=== PATIENT | female | born 1995 | race Caucasian/White ===

== ENCOUNTER 2019-07-15 18:39 | Emergency (ER) | payer MEDICAID, SELFPAY ==
[2019-07-15 18:40] VITALS: BP 159/85; PULSE 100; RESP 17; TEMP 36.8; O2SAT 97; BMI 30.5
--- NOTE | 2019-07-15 18:51 | EKG12_ITS ---
Test Reason : CP Blood Pressure : / mmHG Vent. Rate : 076 BPM Atrial Rate : 076 BPM P-R Int : 124 ms QRS Dur : 080 ms QT Int : 380 ms P-R-T Axes : 055 058 051 degrees QTc Int : 427 ms Normal sinus rhythm Normal ECG Confirmed by BEBE KIM, CORIN ([id number]), business editor ALFREDO TOLBERT ([id number]) on 07/18/2019 8:49:07 AM Referred By: CARLOS Confirmed By:CORIN SPENCE MD
--- NOTE | 2019-07-15 18:52 | ED.DCSUM_ITS ---
History of Present Illness Chief Complaint: Shortness of Breath Informant: Patient, Family Onset: Month(s) Context: Gradual Onset Timing: Intermittent Current Severity: Mild Maximum Severity: Moderate Narrative: Patient presents with a several month history of shortness of breath, chest pain, abdominal pain. She states it will come on and last for several hours at a time and then spontaneously resolved. Last episode before today was a week ago. Patient has not taken anything for pain. She does feel nauseated but has no vomiting. She denies diarrhea or constipation. She denies cough or URI symptoms. - Past Medical History (1) History of Status: Chronic Past Medical History - Allergies and Home Meds Allergies/Adverse Reactions: Allergies No Known Allergies Allergy (Verified 07/15/19 18:39) Primary Care Physician: NOT,DEFINED [NON-STAFF] - Lives: With Family Review of Systems General: Denies: Chills, Fever Eyes: Denies: Visual changes - bilaterally ENT: Denies: Bilateral ear pain Cardiovascular: Reports: Chest pain. Denies: Palpitations, Heart racing Respiratory: Reports: Dyspnea. Denies: Cough, Sputum Gastrointestinal: Reports: Abdominal pain. Denies: Nausea, Vomiting, Diarrhea Genitourinary: Denies: Dysuria Musculoskeletal: Denies: Extremity Pain Skin: Denies: Rash Neurological: Denies: Headache Hematologic: Denies: Easy bruising Allergy: Denies: Uticaria Physical Exam Vital Signs/Narrative: Vital Signs Temp Pulse Resp BP Pulse Ox 07/15/19 18:40 98.2 F 100 17 159/85 H 97 Inital Vital Signs reviewed: Yes General: Well nourished, Well developed Head: Normocephalic ENT: Moist mucous membranes Neck: Supple Cardiovascular: Regular rate, Regular rhythm Respiratory: No distress, CTA bilaterally Abdomen: Soft, Nontender, Normal bowel sounds Back: Nontender Extremities: Nontender Skin: Normal color, No rash Neurological: Alert, Oriented x3, Normal Strength, Normal Sensation Psychological: Normal affect Diagnostic/Tx/Re-eval Impressions Acute Abdomen Series 07/15/19 19:15 IMPRESSION: Normal x-ray examination of the chest, abdomen, and pelvis. Electronically Signed: Ronald Gallegos MD at 19:55 EST , Service support , 07/15/19 19:15 Acute Abdomen Inc Chest [RAD] Stat Laboratory Results 07/15/19 07/15/19 07/15/19 19:05 19:05 19:05 WBC 11.5 H RBC 5.04 Hgb 14.6 Hct 43.4 MCV 86.1 MCH 29.0 MCHC 33.6 RDW Std Deviation 40.9 RDW Coeff of Nahed 13.2 Plt Count 275 MPV 9.4 Immature Gran % (Auto) 0.400 Neut % (Auto) 63.0 Lymph % (Auto) 29.8 [place] % (Auto) 5.5 Eos % (Auto) 1.0 Baso % (Auto) 0.3 Absolute Neuts (auto) 7.3 Absolute Lymphs (auto) 3.44 Nucleated RBC % 0 D-Dimer Quant (PE/DVT) 0.32 Sodium 138 Potassium 4.3 Chloride 109 H Carbon Dioxide 26.0 Anion Gap 3 L BUN 15 Creatinine 0.95 Estim Creat Clear Calc 66.72 Est GFR (MDRD) Af Amer 94 Est GFR (MDRD) Non-Af 78 BUN/Creatinine Ratio 15.8 Glucose 91 Calcium 9.3 Total Bilirubin 0.70 AST 16 ALT 42 Alkaline Phosphatase 60 Troponin I < 0.015 Total Protein 8.1 Albumin 3.9 Globulin 4.2 Albumin/Globulin Ratio 0.9 Serum , Qual 07/15/19 19:05 WBC RBC Hgb Hct MCV MCH MCHC RDW Std Deviation RDW Coeff of Nahed Plt Count MPV Immature Gran % (Auto) Neut % (Auto) Lymph % (Auto) [place] % (Auto) Eos % (Auto) Baso % (Auto) Absolute Neuts (auto) Absolute Lymphs (auto) Nucleated RBC % D-Dimer Quant (PE/DVT) Sodium Potassium Chloride Carbon Dioxide Anion Gap BUN Creatinine Estim Creat Clear Calc Est GFR (MDRD) Af Amer Est GFR (MDRD) Non-Af BUN/Creatinine Ratio Glucose Calcium Total Bilirubin AST ALT Alkaline Phosphatase Troponin I Total Protein Albumin Globulin Albumin/Globulin Ratio Serum , Qual NEGATIVE - EKG Initial EKG Interpretation: Sinus Rhythm - Sinus at 76 with no acute ischemia. - Medical Decision Making Patient was given Toradol, Zofran, and IV fluids. On repeat evaluation she does feel significantly improved. She will be started on Prilosec. Significant other also comments that she has been under increased stress and having a lot of anxiety recently. He is wondering if this may be contributing to her symptoms. She reportedly has been on medications and admitted to a psychiatric facility secondary to this. She is not currently on any medication. She will also be given a short course of Ativan to use as needed. She is referred to Dr. Young as well as counseling center. ED Disposition - Plan for ED Patient: Disposition: Home or Assisted Living Diagnosis: Atypical chest pain, Anxiety Instructions: CHEST PAIN, NonCardiac, Anxiety Reaction Prescriptions: Lorazepam [Ativan] 0.5 mg PO BID PRN PRN #10 tablet PRN Reason: Anxiety Transmission Status: Received by [id number] Omeprazole [Prilosec] 20 mg PO DAILY #30 cap Transmission Status: Pending to [facility]/pharmacy #[id number] Referrals: Dhaval Young MD [NON-STAFF] - 1-2 Weeks Counseling,Center [GROUP OF PHYSICIANS] - As soon as possible
[2019-07-15 18:58] VITALS: O2SAT 98
[2019-07-15] MEDS: 0.9% Normal Saline 1,000 ML 150 ML IV (19:11)
[2019-07-15] MEDS: Ondansetron 4 MG/2 ML Vial IV (19:12)
[2019-07-15] MEDS: Ketorolac 30 MG/ML Syringe IV (19:12)
--- NOTE | 2019-07-15 19:15 | RAD_ITS ---
STUDY: X-RAY - ACUTE ABDOMINAL SERIES REASON FOR EXAM: Female, 24 years old. PT WITH INTERMITTENT DIZZINESS, NAUSEA AND SOB/CHEST TIGHTNESS X MONTHS. WORSE TONIGHT. TECHNIQUE: Single view of the chest. Supine, and erect view(s) of the abdomen were obtained. COMPARISON: None. FINDINGS: night monitor leads are present. The lungs are clear and expanded. Normal size heart. Normal mediastinum and dorie. Normal visualized pulmonary arteries. Normal visualized aortic arch and descending thoracic aorta. There is a non-specific bowel gas pattern. The soft tissue structures of the abdomen and pelvis are unremarkable. And IUD is seen in the mid pelvis. Normal visualized osseous structures. RAD/Acute Abdomen Inc Chest IMPRESSION: Normal x-ray examination of the chest, abdomen, and pelvis. Electronically Signed: Ronald Gallegos MD at 19:55 EST , Service support ,
[2019-07-15 19:46] LABS: Absolute Lymphocyte Count 3.44 X10^3/uL (0.83-4.51); Absolute Neutrophil Count 7.3 X10^3/uL (2.0-7.7); Basophil# 0.04 X10^3/uL; Basophil% 0.3 % (0-1); Eosinophil# 0.12 X10^3/uL; Hematocrit 43.4 % (37-47); Hemoglobin 14.6 g/dL (12.0-15.0); Lymphocyte # 3.44 X10^3/ul (4.0); Lymphocyte % 29.8 % (19-41); Mean Corp Hgb Conc 33.6 g/dL (32-36); Mean Corpuscular Volume 86.1 fL (81-99); Mean Platelet Vol. 9.4 fl (6.2-12.0); Monocyte# 0.63 X10^3/uL; Monocyte% 5.5 % (0-10); NRBC Flagged by Analyzer 0 % (0-5); Neutrophil # 7.25 X10^3/uL (2.7-7.7); Platelet Count 275 K/mm3 (150-450); RBC Distribution Width CV 13.2 % (11.6-14.6); RBC Distribution Width SD 40.9 fl (35.1-43.9); Red Blood Count 5.04 M/mm3 (4.2-5.4); White Blood Count 11.5 K/mm3 (4.4-11.0)
[2019-07-15 19:54] LABS: D-Dimer Quantitative (DVT/PE) 0.32 FEU/ug/m (0.27-0.49); Internal QC Validated? YES +Cl - CLEAR BKGD; Pregnancy, Serum, hCG Quali. NEGATIVE Negative
[2019-07-15 20:00] LABS: ALB/GLOB Ratio 0.9 RATIO (0.9-2.4); AST(SGOT) 16 U/L (15-37); Alanine Aminotransfer ALT/SGPT 42 U/L (13-56); Albumin, Serum 3.9 g/dL (3.2-5.0); Alkaline Phosphatase 60 U/L (45-117); Anion Gap 3 (5-15); BUN 15 mg/dL (7-18); BUN/Creat Ratio 15.8 RATIO (10-20); Calcium,Total 9.3 mg/dL (8.5-10.1); Chloride 109 mmol/L (98-107); Creatinine, Serum 0.95 mg/dL (0.55-1.02); EST Glomerular Filtration Rate 78 mL/min (>60); Est Glom Filt Rate - Afr Amer 94 mL/min (>60); Estimated Creatinine Clearance 66.72 ml/min; Globulin 4.2 g/dL (2.2-4.2); Glucose 91 mg/dL (74-106); Potassium 4.3 mmol/L (3.5-5.1); Protein, Total 8.1 g/dL (6.4-8.2); Sodium Level 138 mmol/L (136-145)
[2019-07-15 20:35] VITALS: BP 119/72; PULSE 89; RESP 18; O2SAT 98
== END 2019-07-15 20:36 | disposition home or self-care (01) ==
PROVIDERS: Emergency Provider Emergency Medicine
DX: R07.89 Other chest pain (principal); F41.9 Anxiety disorder, unspecified; R10.9 Unspecified abdominal pain; R11.0 Nausea
CPT/HCPCS: 74022; 80053; 84484; 84703; 85025; 85379; 93005; 96361; 96374; 96375; 99283; J7030; A4216; J2405